=== PATIENT | female | born 1985 | race Native Hawaiian/Other Pacific Islander ===

== ENCOUNTER 2016-10-18 10:40 | Emergency (ER) | payer OTHER ==
[~2016-10-18] VITALS: Ht 162.6 cm; Wt 72.6 kg
[~2016-10-18 10:40] MED LIST: ALEVE220 MG PO; SUBOXONE1 MI2 SL
[2016-10-18 10:45] VITALS: BP 128/70; TEMP 98.7
== END 2016-10-18 12:06 | disposition home or self-care (01) ==
LOC: ED 10:40
DX: H10.12 Acute atopic conjunctivitis, left eye (principal)
CPT/HCPCS: 99283

== ENCOUNTER 2019-06-13 09:31 | Emergency (ER) | payer OTHER ==
[~2019-06-13] VITALS: Ht 162.6 cm; Wt 68.0 kg
[2019-06-13 09:45] VITALS: BP 127/74; TEMP 97.3
[2019-06-13 10:31] LABS: PLATELET COUNT 231 K/uL (152-353)
[2019-06-13 10:33] LABS: POTASSIUM 4.4 mmol/L (3.6-5.2)
[2019-06-13] MEDS ORDERED: B-121000 MC4 PO (10:41)
[2019-06-13] MEDS ORDERED: POTA20TA4 PO (10:42)
[2019-06-13] MEDS ORDERED: BAYER ASA325 M1 PO (10:43)
== END 2019-06-13 22:20 | disposition home or self-care (01) ==
LOC: ED 09:31
PROVIDERS: Emergency Medicine
DX: F23 Brief psychotic disorder (principal)
CPT/HCPCS: 80053; 80307; 80320; 80329; 81000; 81025; 85027; 93005; 99283; J3486

== ENCOUNTER 2021-08-27 12:08 | Emergency (ER) | payer BC ==
[~2021-08-27] VITALS: Ht 157.5 cm; Wt 81.6 kg
[~2021-08-27 12:08] MED LIST changes: +B-121000 MC4 PO; +BAYER ASA325 M1 PO; +POTA20TA4 PO
[2021-08-27 12:36] VITALS: TEMP 97.7
[2021-08-27 13:38] VITALS: BP 124/84
== END 2021-08-27 13:39 | disposition home or self-care (01) ==
LOC: ED 12:08
DX: K04.7 Periapical abscess without sinus (principal)
CPT/HCPCS: 96372; 99283; J0696; J1885